=== PATIENT | male | born 1960 | race Caucasian/White ===

== ENCOUNTER 2020-08-10 12:00 | Inpatient (IN) | payer OTHER ==
[~2020-08-10] VITALS: Ht 177.8 cm; Wt 86.7 kg
[2020-08-10] MEDS ORDERED: CHLORHEXIDINE 15 ML UDC PO ONE (12:30)
[2020-08-10] MEDS ORDERED: LACTATED RINGERS 1,000 ML IV SCH (12:30)
[2020-08-10] MEDS ORDERED: MULT-160 PO (12:30)
[2020-08-10] MEDS ORDERED: OMNIPAQUE 350 MG/ML, 50 ML BOTTLE ONE (12:38)
[2020-08-10 12:51] VITALS: BP 167/80
[2020-08-10 13:05] LABS: INTERNATIONAL NORMALIZED RATIO 1.05 (0.93-1.1); PROTHROMBIN TIME 11.2 Seconds (9.6-11.5)
[2020-08-10] MEDS ORDERED: GEMCITABINE HCL 2,000 MG in SODIUM CHLORIDE 0.9% 47.4 ML IS ONE (14:00)
[2020-08-10] MEDS ORDERED: FENTANYL PF 250 MCG/5ML ONE ×2 (14:12→15:27)
[2020-08-10] MEDS ORDERED: MIDAZOLAM 1 MG/ML, 2ML ONE (14:13)
[2020-08-10] MEDS ORDERED: METHOCARBAMOL 1,000 MG in DEXTROSE 5% 100 ML IV PRN ×2 (14:30→15:30)
[2020-08-10] MEDS ORDERED: PROMETHAZINE 25 MG/ML, 1ML IVPush PRN ×2 (14:30→15:30)
[2020-08-10] MEDS ORDERED: MEPERIDINE/PF 25MG/0.5ML IVPush PRN ×2 (14:30→15:30)
[2020-08-10] MEDS ORDERED: hydrALAzine 20 MG/ML, 1ML IV PRN ×2 (14:30→15:30)
[2020-08-10] MEDS ORDERED: OXYcodone 5 MG/5 ML ORAL.SOL UDC PO PRN ×2 (14:30→15:30)
[2020-08-10] MEDS ORDERED: HYDROmorphone 1 MG/ML, 1ML INJ IVPush PRN ×2 (14:30→15:30)
[2020-08-10] MEDS ORDERED: EPHEDRINE 50 MG/ML, 1ML IVPush PRN ×2 (14:30→15:30)
[2020-08-10] MEDS ORDERED: LABETALOL 5MG/ML, 20ML IV PRN ×2 (14:30→15:30)
[2020-08-10] MEDS ORDERED: ONDANSETRON 2MG/ML, 2ML IVPush PRN ×3 (14:30→21:30)
[2020-08-10] MEDS ORDERED: CEFAZOLIN 1,000 MG ONE (14:47)
[2020-08-10] MEDS ORDERED: DEXAMETHASONE 4 MG/ML, 1ML ONE (14:47)
[2020-08-10] MEDS ORDERED: ONDANSETRON 2MG/ML, 2ML ONE (14:47)
[2020-08-10] MEDS ORDERED: PROPOFOL 10 MG/ML, 20ML ONE (14:47)
[2020-08-10] MEDS ORDERED: PROPOFOL 50 ML ONE (15:03)
[2020-08-10] MEDS ORDERED: OMNIPAQUE 350 MG/ML, 50 ML BOTTLE IV ONE (15:15)
[2020-08-10] MEDS ORDERED: FENTANYL PF 100 MCG/2ML IV PRN (15:30)
[2020-08-10] MEDS ORDERED: ACETAMINOPHEN 325 MG TABLET PO PRN (15:30)
[2020-08-10] MEDS ORDERED: LORazepam 2 MG/ML, 1ML IVPush PRN (15:30)
[2020-08-10] MEDS ORDERED: FENTANYL PF 100 MCG/2ML ONE ×2 (15:47→16:04)
[2020-08-10] MEDS ORDERED: PROMETHAZINE 25 MG/ML, 1ML ONE (15:47)
[2020-08-10] MEDS: FENTANYL PF 100 MCG/2ML IV PRN ×4 (15:50→16:05)
[2020-08-10] MEDS ORDERED: HYDROmorphone 1 MG/ML, 1ML INJ ONE (15:57)
[2020-08-10] MEDS ORDERED: OXYcodone 5 MG/5 ML ORAL.SOL UDC ONE (16:04)
[2020-08-10] MEDS ORDERED: OPIUM/BELLADONNA SUPP.RECT 16.2-60 MG ONE ×2 (17:36→18:51)
[2020-08-10] MEDS ORDERED: OPIUM/BELLADONNA SUPP.RECT 16.2-60 MG PR PRN ×2 (18:00→21:30)
[2020-08-10] MEDS ORDERED: hydrALAzine 20 MG/ML, 1ML ONE (18:15)
[2020-08-10] MEDS: ACETAMINOPHEN 325 MG TABLET PO PRN (20:11)
[2020-08-10 20:15] VITALS: BP 146/87
[2020-08-10] MEDS: D5%-LACTATED RINGERS 1,000 ML IV SCH (21:30)
[2020-08-10] MEDS: HYDROmorphone 1 MG/ML, 1ML INJ IV PRN (23:00)
[2020-08-11 00:07] VITALS: BP 132/78
[2020-08-11 04:09] VITALS: BP 137/82
[2020-08-11] MEDS: D5%-LACTATED RINGERS 1,000 ML IV SCH (06:41)
[2020-08-11 07:28] VITALS: BP 134/81
[2020-08-11] MEDS: HYDROmorphone 1 MG/ML, 1ML INJ IV PRN ×2 (11:29→16:34)
[2020-08-11] MEDS ORDERED: OPIUM/BELLADONNA SUPP.RECT 16.2-30 MG PR ONE (12:30)
[2020-08-11] MEDS ORDERED: OXYBUTYNIN CHLORIDE 5 MG TABLET PO ONE ×2 (12:30→14:30)
[2020-08-11] MEDS ORDERED: OPIUM/BELLADONNA SUPP.RECT 16.2-60 MG PR PRN ×2 (13:00)
[2020-08-11 13:51] VITALS: BP 129/72
[2020-08-11] MEDS: LORazepam 2 MG/ML, 1ML IVPush PRN (14:15)
[2020-08-11 19:30] VITALS: BP 112/72
[2020-08-11] MEDS: ACETAMINOPHEN 325 MG TABLET PO PRN (20:25)
[2020-08-12 02:55] VITALS: BP 120/71
[2020-08-12] MEDS: ACETAMINOPHEN 325 MG TABLET PO PRN ×2 (03:18→07:49)
[2020-08-12 07:39] VITALS: BP 129/76
[2020-08-12] MEDS ORDERED: TAMSULOSIN 0.4 MG CAP.ER.24H PO SCH (09:00)
[2020-08-12] MEDS ORDERED: OXYBUTYNIN CHLORIDE 5 MG TABLET ONE (11:10)
[2020-08-12] MEDS: OXYcodone IR 5MG TABLET PO PRN ×2 (11:11→14:52)
[2020-08-12] MEDS ORDERED: TAMS-11 PO (11:28)
[2020-08-12] MEDS ORDERED: OXYC10TA72 PO (11:28)
[2020-08-12] MEDS ORDERED: OXYB10TA26 PO (11:28)
[2020-08-12] MEDS: LORazepam 2 MG/ML, 1ML IVPush PRN ×2 (12:01→12:37)
[2020-08-12 12:38] LABS: ANION GAP 6 mmol/L (5-15); CALCIUM 8.6 mg/dL (8.5-10.1); CHLORIDE 103 mmol/L (98-107); CREATININE 1.58 mg/dL (0.7-1.3)
[2020-08-12 14:00] VITALS: BP 139/84
[2020-08-12] MEDS ORDERED: MAGNESIUM CITRATE 300ML ORAL SOL PO ONE (14:00)
[2020-08-12] MEDS ORDERED: OXYBUTYNIN CHLORIDE 5 MG TABLET PO SCH (16:00)
[2020-08-12] MEDS: HYDROmorphone 1 MG/ML, 1ML INJ IV PRN (16:04)
== END 2020-08-12 18:59 | disposition home or self-care (01) | DRG 669 ==
LOC: OUT 12:00 → ORIP 21:09 → 4NW 21:56 → OBSVTOIN 08-12 14:09
PROVIDERS: ADMIT Urology; ATTEND Urology
PROC: 0TBB8ZZ Excision of Bladder, Via Natural or Artificial Opening Endoscopic (ICD-10-PCS; principal; 2020-08-10 14:00)
PROC: BT141ZZ Fluoroscopy of Kidneys, Ureters and Bladder using Low Osmolar Contrast (ICD-10-PCS; 2020-08-10 14:00)
DX: N32.89 Other specified disorders of bladder (principal); N13.30 Unspecified hydronephrosis; D49.4 Neoplasm of unspecified behavior of bladder; R31.29 Other microscopic hematuria; Z79.899 Other long term (current) drug therapy
CPT/HCPCS: 36415; 74420; J7121; 76770; 80048; 85610; 88305; 88307; 93005; G0378; J0690; J1100; J1170; J2250; J2405; J2550; J2704; J3010; J9201; Q9967; C1758; C1769; C2617; J0360; J2060; J2800; J7120; U0003

== ENCOUNTER → 2020-09-22 | Outpatient (CLI) | payer OTHER ==
[~2020-09-22] MED LIST: MULT-160 PO; OXYB10TA26 PO; OXYC10TA72 PO; TAMS-11 PO
== END | disposition home or self-care (01) ==
LOC: PETCFH 08:52
PROVIDERS: ATTEND Pathology Hematology
DX: C67.4 Malignant neoplasm of posterior wall of bladder (principal); J98.11 Atelectasis; K76.89 Other specified diseases of liver
CPT/HCPCS: 78815; A9552